=== PATIENT | female | born 1975 | race Caucasian/White ===

== ENCOUNTER 2017-06-30 22:06 | Emergency (ER) | payer OTHER ==
[~2017-06-30] VITALS: Ht 172.7 cm; Wt 124.7 kg
[2017-06-30 22:07] VITALS: BP 162/100
--- NOTE | 2017-06-30 22:16 | NUR ---
PT AMBULATED TO ER BED 03
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
--- NOTE | 2017-06-30 22:48 | NUR ---
Patient being evaluated by at bedside.
[2017-06-30] MEDS ORDERED: SILVER SULFADIAZINE 1% 50 GM JAR TP ONE ×2 (22:55→23:04)
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
[2017-06-30 23:10] VITALS: BP 158/89
--- NOTE | 2017-06-30 23:10 | NUR ---
Patient discharged with v/s stable. Written and verbal after care instructions given and explained. Patient alert, oriented and verbalized understanding of instructions. Ambulatory with steady gait. All questions addressed prior to discharge. ID band removed. Patient advised to follow up with PMD. Rx of Silvadene cream and Ibuprofen given. Patient educated on indication of medication including possible reaction and side effects. Opportunity to ask questions provided and answered.
== END 2017-06-30 23:10 | disposition home or self-care (01) ==
LOC: MED 22:06
DX: T23.231A Burn of second degree of multiple right fingers (nail), not including thumb, initial encounter (principal); T22.212A Burn of second degree of left forearm, initial encounter; T31.0 Burns involving less than 10% of body surface; Z88.1 Allergy status to other antibiotic agents; X17.XXXA Contact with hot engines, machinery and tools, initial encounter; Y93.89 Activity, other specified; Y92.89 Other specified places as the place of occurrence of the external cause; Y99.8 Other external cause status
CPT/HCPCS: 99283

== ENCOUNTER 2018-06-19 21:32 | Inpatient (IN) | payer OTHER ==
[~2018-06-19] VITALS: Ht 172.7 cm; Wt 141.1 kg
[2018-06-19 21:38] VITALS: BP 122/82
[2018-06-19 23:06] LABS: BARBITURATE, URINE NEG. ng/ml (NEG <=200); BENZODIAZEPINE, URINE NEG. ng/mL (NEG <=200); CANNABINOID, URINE NEG. ng/mL (NEG <=50); COCAINE, URINE NEG. ng/mL (NEG <=300); OPIATE, URINE NEG. ng/mL (NEG <=2000); PHENCYCLIDINE SCREEN,URINE NEG. ng/mL (NEG <=25)
[2018-06-19 23:14] LABS: BASOPHILS % (AUTO) 0.4 % (0.0-2.0); EOSINOPHILS # (AUTO) 0.4 K/uL (0-0.4); EOSINOPHILS % (AUTO) 3.5 % (0.0-4.0); HEMATOCRIT 42.5 % (36-48); HEMOGLOBIN 13.9 g/dL (12.0-16.0); LYMPHOCYTES # (AUTO) 2.2 K/uL (2.5-16.5); LYMPHOCYTES % (AUTO) 21.2 % (20.5-51.1); MEAN CORPUSCULAR HEMOGLOBIN 31 pg (27-31); MEAN CORPUSCULAR HGB CONC 33 g/dL (33-37); MEAN CORPUSCULAR VOLUME 93.4 fL (80-94); MONOCYTES # (AUTO) 0.7 K/uL (0.8-1.0); MONOCYTES % (AUTO) 6.5 % (1.7-9.3); NEUTROPHILS # (AUTO) 7.1 K/uL (1.8-7.7); NEUTROPHILS % (AUTO) 68.4 % (42.2-75.2); PLATELET COUNT (AUTO) 278 K/uL (140-450); RED BLOOD CELL COUNT(AUTO) 4.55 MIL/uL (4.20-5.40); RED CELL DISTRIBUTION WIDTH 12.6 % (11.6-13.7); WHITE BLOOD COUNT (AUTO) 10.5 K/uL (4.8-10.8)
[2018-06-19 23:35] LABS: ALBUMIN 3.6 g/dL (3.4-5.0); ASPARTATE AMINOTRANSFERASE 16 U/L (15-37); CARBON DIOXIDE 25.8 mmol/L (21-32); CHLORIDE 103 mmol/L (98-107); CREATININE 0.8 mg/dL (0.6-1.3); GFR ARICAN-AMERICAN 100 mL/min (>90); GLUCOSE 128 mg/dL (74-106); POTASSIUM 3.8 mmol/L (3.5-5.1); SALICYLATE 5.1 mg/dL (2.8-20.0); SODIUM SERUM 139 mmol/L (136-145); TOTAL BILIRUBIN 0.3 mg/dL (0.0-1.0); UREA NITROGEN, BLOOD 14 mg/dL (7-18)
[2018-06-19 23:39] LABS: ACETAMINOPHEN < 0.5 ug/ml (10-30)
[2018-06-20] MEDS ORDERED: MULTIVITAMIN (01:06)
[2018-06-20] MEDS ORDERED: BER PO (01:19)
[2018-06-20] MEDS ORDERED: RIZA10TA16 PO (01:19)
[2018-06-20] MEDS ORDERED: SERT100T PO (01:19)
[2018-06-20] MEDS ORDERED: LAM200 PO (01:19)
[2018-06-20] MEDS ORDERED: PANT40EC PO (01:19)
[2018-06-20] MEDS ORDERED: VITD1000 PO (01:19)
[2018-06-20] MEDS ORDERED: ESK300 PO (01:19)
[2018-06-20] MEDS ORDERED: PRAV20TA2 PO (01:19)
[2018-06-20] MEDS ORDERED: ALPR0.252 PO (01:29)
[2018-06-20] MEDS ORDERED: QUET400T PO (01:29)
[2018-06-20] MEDS ORDERED: LORA10TA19 PO (01:29)
[2018-06-20] MEDS ORDERED: ZOLP10TA1 PO (01:29)
[2018-06-20] MEDS ORDERED: ZIPRASIDONE MESYLATE 20 MG/ML VIAL IM ONE (02:00)
[2018-06-20] MEDS ORDERED: LORazepam 2 MG/ML VIAL IM ONE ×2 (02:00→06:30)
[2018-06-20] MEDS ORDERED: WATER STERILE 10 ML MC ONE (02:13)
[2018-06-20 02:14] LABS: APPEARANCE,URINE CLEAR (CLEAR); BILIRUBIN,URINE NEGATIVE (NEGATIVE); BLOOD, URINE TRACE-I (NEGATIVE); COLOR,URINE YELLOW (YELLOW); LEUKOCYTE ESTERASE ,URINE NEGATIVE (NEGATIVE); NITRITE, URINE NEGATIVE (NEGATIVE); UGLUCOSE NEGATIVE (NEGATIVE)
[2018-06-20 02:21] LABS: RBC,URINE 0-5 (RARE) /HPF (0-5); WBC,URINE 0-5 (RARE) /HPF (0-5)
[2018-06-20] MEDS ORDERED: SUMAtriptan 6 MG/0.5 ML VIAL SUBQ ONE (03:00)
[2018-06-20] MEDS ORDERED: LORazepam 1 MG TAB PO ONE (10:30)
[2018-06-20] MEDS ORDERED: ONDANSETRON 4 MG/2 ML VIAL IVP PRN (11:30)
[2018-06-20 12:15] VITALS: BP 126/64
[2018-06-20] MEDS: ACETAMINOPHEN 325 MG TAB PO PRN ×2 (12:56→20:16)
[2018-06-20 13:23] LABS: CHOL/HDL RATIO 3.2 (1-4.5); FREE T4 (FREE THYROXINE) 0.85 ng/dL (0.76-1.46); MAGNESIUM 1.7 mg/dL (1.8-2.4); PHOSPHORUS 3.8 mg/dL (2.5-4.9); THYROID STIMULATING HORMONE 4.39 uIU/mL (0.34-3.74)
[2018-06-20 16:00] VITALS: BP 126/64
[2018-06-20] MEDS ORDERED: RIZATRIPTAN BENZOATE 5 MG PO PRN (17:40)
[2018-06-20] MEDS ORDERED: LACTULOSE 20 GM/30 ML UDC PO SCH (17:58)
[2018-06-20 20:00] VITALS: BP 133/76
[2018-06-20] MEDS: MAGNESIUM OXIDE 400 MG TAB PO SCH (20:16)
[2018-06-20] MEDS: LACTULOSE 20 GM/30 ML UDC PO SCH (20:17)
[2018-06-20] MEDS ORDERED: ZOLPIDEM 10 MG TAB PO PRN (21:00)
[2018-06-20] MEDS ORDERED: QUEtiapine FUMARATE 100 MG TAB PO SCH (21:00)
[2018-06-20] MEDS ORDERED: SIMVASTATIN 10 MG TAB PO SCH (21:00)
[2018-06-21 08:00] VITALS: BP 121/68
[2018-06-21] MEDS: LACTULOSE 20 GM/30 ML UDC PO SCH (08:50)
[2018-06-21] MEDS: MAGNESIUM OXIDE 400 MG TAB PO SCH (08:52)
[2018-06-21] MEDS ORDERED: LITHIUM CARBONATE 300 MG TAB PO SCH (09:00)
[2018-06-21] MEDS ORDERED: LORATADINE 10 MG TAB PO SCH (09:00)
[2018-06-21] MEDS ORDERED: ALPRAZolam 0.25 MG TAB PO SCH (09:00)
[2018-06-21] MEDS ORDERED: PANTOPRAZOLE 40 MG TABEC PO SCH (09:00)
[2018-06-21] MEDS ORDERED: SERTRALINE 50 MG TAB PO SCH (09:00)
[2018-06-21] MEDS ORDERED: VITAMIN D 400 IU TAB PO SCH (09:00)
[2018-06-21] MEDS ORDERED: VITAMIN B COMPLEX W/C 1 TAB PO SCH (09:00)
[2018-06-21] MEDS ORDERED: INFLUENZA VIRUS VACCINE QUAD 0.5 ML SYR IMVAC PRN (10:55)
== END 2018-06-21 11:15 | disposition home or self-care (01) | DRG 442 ==
LOC: MED 21:32 → MTU 06-20 11:35
PROVIDERS: ADMIT General Practice; ATTEND General Practice
DX: K72.90 Hepatic failure, unspecified without coma (principal); Z68.42 Body mass index [BMI] 45.0-49.9, adult; F31.9 Bipolar disorder, unspecified; E66.01 Morbid (severe) obesity due to excess calories; E83.42 Hypomagnesemia; E78.5 Hyperlipidemia, unspecified; F41.9 Anxiety disorder, unspecified; E02 Subclinical iodine-deficiency hypothyroidism; Z71.3 Dietary counseling and surveillance; Z23 Encounter for immunization; Z88.1 Allergy status to other antibiotic agents; Z79.899 Other long term (current) drug therapy
CPT/HCPCS: 36415; 71045; 80053; 80178; 80305; 81001; 82140; 82150; 83036; 83690; 83735; 83880; 84100; 84439; 84443; 84484; 85025; 85610; 85730; 90658; 93005; G0480; G0482; J2060; J3030; J3486; Q0092